=== PATIENT | male | born 1985 | race Caucasian/White ===

== ENCOUNTER 2023-06-16 14:01 | Emergency (ER) | payer MEDICARE, MEDICAID, SELFPAY ==
[2023-06-16 14:50] VITALS: BP 138/87; PULSE 97; RESP 18; TEMP 36.9; O2SAT 99; BMI 28.6
--- NOTE | 2023-06-16 14:52 | ED_ITS ---
HPI - General Adult General Chief complaint: Skin/Abscess/Foreign Body Stated complaint: Rash Time Seen by Provider: 06/16/23 16:19 Source: patient Mode of arrival: ambulatory Limitations: no limitations History of Present Illness HPI narrative: Patient is a 37-year-old male presenting emergency department with painful rash to scrotum for the past 5 days. He denies any dysuria or other urinary symptoms. Denies any penile discharge. Denies any drainage or discharge from the rash. Denies recent fevers. Denies any recent sexual intercourse or new sexual partners. Denies any testicular pain, reports pain is superficial to scrotum. Has applied OTC antibacterial ointment without relief. complaint: scrotal rash Onset (ago): day(s) Location: genitals Radiation: non-radiation Severity: moderate Quality: burning Pain Consistency: constant Relieving factors: none Exacerbating factors: none Associated symptoms: denies other symptoms Treatments prior to arrival: other (antibacterial ointment) Related Data Previous Rx's Medication Instructions Recorded ketoconazole 2 % topical cream 1 appl topical DAILY #15 grams 06/16/23 Allergies Allergy/AdvReac Type Severity Reaction Status Date / Time No Known Allergies Allergy Verified 06/16/23 14:50 Review of Systems Review of Systems: As per HPI. Yes all other systems are reviewed and are negative Constitutional: Constitutional: Reports as per HPI [facility] Social History Social History Advance Directives: No Advance Directives Information Provided: Yes Physical Exam ED Vital Signs: Vital Signs - 24 hr 06/16/23 14:50 06/16/23 18:06 Temperature 98.4 F 98 F Pulse Rate 97 88 Respiratory Rate 18 18 Blood Pressure 138/87 145/97 H Pulse Oximetry 99 98 Oxygen Delivery Method Room Air Room Air BMI result Body Mass Index 28.6 Vital signs have been reviewed and appear to be correct. Blood pressure normal. Heart rate normal. Respiratory rate normal. Temperature normal. Oxygen saturation normal. Const General: cooperative, healthy appearing and no acute distress Orientation/consciousness: oriented to person, oriented to place, oriented to time and patient oriented x3 Limitations: no limitations HENMT Head: Yes normocephalic and Yes atraumatic Ears: external ears normal General nose exam: Normal external nose present Face and sinus: Yes face symmetric Mouth: oropharynx normal and moist mucous membranes Throat: Yes uvula midline Eyes Pupils: Equal, round and reactive pupils present Neck Neck: Yes normal visual inspection and Yes supple Resp Effort & Inspection: normal respiratory effort and able to speak in complete sentences Auscultation: clear to auscultation bilaterally Cardio Rate: regular rate Rhythm: regular rhythm Heart sounds: S1 normal heart sound present and S2 normal heart sound present GI Palpation (GI): Soft to palpation and nontender Auscultation: normoactive bowel sounds Other: Exam chaperoned by LITZY Silver General: Yes no CVA tenderness Penis: normal penis Meatus: meatus normal Scrotum: erythematous diffuse and testes descended bilaterally Testes: Testes normal and no testicular tenderness Back/Spine/Pelvis Back: no CVA tenderness Skin General skin exam: elasticity normal and turgor normal Neuro General: oriented to person, oriented to place, oriented to time, patient oriented x3, moves all extremities, no focal motor deficits and CN's II-XI intact bilaterally Cranial nerves: Yes Equal, round and reactive pupils present Cognition (Neuro): normal cognition Extrem General: Yes full ROM, Yes no pedal edema and Yes no calf tenderness Psych Mental Status: mental status grossly normal Affect: normal affect Thought process: Normal thought process present Course Course Course Narrative: RME: 37 yold male presents to the ED for genital rash for 5 days. patient denies any open sores or penile lesions. Medical Decision Making Medical Decision Making [facility] Narrative: Patient is a 37-year-old male presenting emergency department with painful rash to scrotum for the past 5 days. On exam patient is awake, A+Ox3, VS WNL, afebrile, normal neurological exam without focal deficits, diffuse erythematous excoriated rash to scrotum, no rash to penis, no testicular tenderness. Given reported symptoms and physical exam findings, initial differential includes tinea cruris, seborrheic dermatitis. Unlikely candidal intertrigo, inverse psoriasis, or erythrasma. No evidence of infection on UA. Will prescribe ketoconazole 2% cream daily, advised patient to keep area open to air as much as possible, and to wash towels and underwear in hot, soapy water. Patient instructed patient to follow-up with primary care provider. Return precautions discussed at bedside. Patient verbalized understanding of and agreement with plan. Differential Diagnosis Differential Diagnoses: The differential diagnosis associated with the presentation includes As per MDM. Lab Data [facility] Lab Attestation statement: I reviewed the patient's lab results. As per MDM. Labs: Lab Results 06/16/23 Range/Units 17:35 Urine Color Yellow Urine Appearance Clear Urine pH 5.5 (5.0-9.0) Ur Specific [place] 1.020 (1.005-1.025) Urine Protein Negative (Neg-Trace) mg/dL Urine Glucose (UA) Negative (Negative) mg/dL Urine Ketones Negative (Negative) mg/dL Urine Blood Negative (Negative) Urine Nitrite Negative (Negative) Ur Leukocyte Esterase Negative (Negative) External Record Review External record reviewed: Inpatient record, Office record and Outpatient record Prescription Management I considered prescription management with: Other Discharge Plan Discharge Clinical Impression: Tinea cruris Patient Disposition: Home, Self-Care Instructions: Jock Itch (ED) Additional Instructions: You were evaluated in the emergency department for complaint of rash. Your exam is consistent with tinea cruris, also known as jock itch. You are being prescribed a daily cream to apply to the affected area. You should also leave the area open to air as much as possible. You should wash your underwear, sheets, and towels in hot soapy water. Follow-up with your primary care provider this week. Return to the emergency department for worsening redness, swelling, pain, fevers and 100.4? F or greater, or any other concerning symptoms. Prescriptions: New ketoconazole 2 % cream 1 appl topical DAILY Qty: 15 0RF Rx Instructions: Apply to scrotum daily. Interventions: ED Discharge Assessment Last Done: 06/16/23 18:14 Discharge Date/Time: 06/16/23 18:14
[2023-06-16 17:47] LABS: Appearance Urine Clear; Color Urine Yellow; Glucose Urine UA Negative (Negative); Leukocyte Esterase Urine Negative (Negative); Nitrite Urine Negative (Negative); PH 5.5 (5.0-9.0); Urine Blood Negative (Negative); Urine Ketones Negative (Negative); Urine Protein Negative (Neg-Trace)
[2023-06-16 18:06] VITALS: BP 145/97; PULSE 88; RESP 18; TEMP 36.6; O2SAT 98
== END 2023-06-16 18:14 | disposition home or self-care (01) ==
PROVIDERS: Registered Nurse Emergency; Emergency Provider Internal Medicine
DX: B35.6 Tinea cruris (principal); Z79.899 Other long term (current) drug therapy
CPT/HCPCS: 81003; 99283

== ENCOUNTER 2025-03-13 18:13 | Emergency (ER) | payer OTHER, SELFPAY ==
[2025-03-13 18:30] VITALS: BP 131/91; PULSE 124; RESP 14; TEMP 36.8; O2SAT 96; BMI 33.4
--- NOTE | 2025-03-13 18:30 | ED_ITS ---
HPI - General Adult General Chief complaint: Upper Respiratory Symptoms Stated complaint: throat pain Time Seen by Provider: 03/13/25 20:00 Source: patient Mode of arrival: ambulatory Limitations: no limitations History of Present Illness ED Provider: Marisa Joel PA-C HPI narrative: Patient is a 39 year old assigned male at with no reported medical history presenting to the emergency department today with a sore throat. Patient states that over the last 3 days he has had increased mucous and a sore throat. Patient denies any dizziness, lightheadedness, abdominal pain, nausea, vomiting, fever, chills, blurry vision, double vision, loss of vision, chest pain, difficulty breathing, shortness of breath, back pain, night sweats, pain with urination, increased urinary frequency, increased urinary urgency, blood in his urine or stool, syncope or a near syncopal episode, recent trauma or falls, bowel incontinence, bladder incontinence, or any other complaints at this time. Lyndon lynn denies any recent oral sex. Onset (ago): day(s) (3) Relieving factors: none Exacerbating factors: none Associated symptoms: denies other symptoms Treatments prior to arrival: none Related Data Previous Rx's ?Medication ?Instructions ?Recorded ketoconazole 2 % topical cream 1 appl topical DAILY #15 grams 06/16/23 Allergies Allergy/AdvReac Type Severity Reaction Status Date / Time No Known Allergies Allergy Verified 03/13/25 18:32 Review of Systems Constitutional: Constitutional: Reports no additional constitutional complaints, Denies chills, Denies fever(s) and Denies night sweats Eyes: Eyes: Reports no additional eye complaints, Denies blurry vision, Denies change in vision, Denies diplopia, Denies eye discharge, Denies loss of vision and Denies eye pain ENT: Denies dizziness Comments: Sore throat Cardiovascular: Cardiovascular: Reports no additional cardiovascular comp laints, Denies chest pain, Denies lightheadedness, Denies Loss of Consciousness and Denies dyspnea Respiratory: Respiratory: Reports no additional respiratory complaints and Denies dyspnea Gastrointestinal: Gastrointestinal: Reports no additional gastrointestinal complaints, Denies abdominal pain, Denies melena, Denies hematochezia, Denies change in bowel habits and Denies change in stool character Genitourinary: Genitourinary: Reports no additional male genitourinary complaints, Denies hematuria, Denies oliguria, Denies difficulty urinating, Denies dysuria, Denies urinary frequency, Denies urinary hesitancy, Denies urinary incontinence and Denies urinary urgency Musculoskeletal: Musculoskeletal: Reports no additional musculoskeletal complaints, Denies numbness and Denies tingling Neurologic: Denies dizziness, Denies loss of vision, Denies numbness and Denies tingling Psychiatric: Psychiatric: Reports no additional psychiatric complaints Endocrine: Endocrine: Reports no additional endocrine complaints Hematologic/Lymphatic: Hematologic/Lymphatic: Reports no additional hematologic/lymphatic complaints Allergic/Immunologic: Allergic/Immunologic: Reports no additional allergic/immunologic complaints [facility] Past Medical History Attestation statement: The following information was validated with the patient. Source: old records reviewed and nursing notes reviewed Social History Social History Advance Directives: No Advance Directives Information Provided: No Do you have a plan to hurt others: No Plan Physical Exam ED Vital Signs: Vital Signs - 24 hr 03/13/25 18:30 03/13/25 20:09 Temperature 98.2 F 98.5 F Pulse Rate 124 H 98 Respiratory Rate 14 16 Blood Pressure 131/91 H 147/98 H Pulse Oximetry 96 99 Oxygen Delivery Method Room Air BMI result Body Mass Index 33.4 Const General: cooperative, no acute distress, alert and awake Nutritional Appearance: well nourished Orientation/consciousness: patient oriented x3 HENMT Head: Yes normal to inspection and Yes atraumatic Ears: hearing grossly normal bilaterally and external ears normal General nose exam: Normal external nose present, no nasal discharge noted and no epistaxis Face and sinus: Yes normal facial exam, No abrasion and No laceration Mouth: Normal oral and palatal mucosa present, no drooling and no muffled voice Eyes General: appearance normal, both eyes and all related structures Periorbital: periorbital findings normal Eyelids: Yes eyelids normal Conjunctivae: conjunctivae normal Pupils: Equal, round and reactive pupils present EOM: EOMs intact bilaterally Neck Neck: Yes normal visual inspection, Yes full ROM and Yes no lymphadenopathy Resp Effort & Inspection: normal respiratory effort and able to speak in complete sentences Neuro General: patient oriented x3, moves all extremities and CN's II-XI intact bilaterally Cranial nerves: Yes Equal, round and reactive pupils present Cognition (Neuro): normal cognition Extrem General: Yes normal to inspection, Yes full ROM and Yes capillary refill normal Psych Appearance: grossly normal Mental Status: mental status grossly normal Affect: normal affect Attitude: cooperative Thought process: Normal thought process present Thought content: Normal thought content present Insight: Good insight present (Psych) Course Course Course Narrative: RME performed by Marisa Joel PA-C. Patient is a 39 year old assigned male at presenting to the emergency department with a sore throat. Detailed physical exam and review of systems are deferred to the prosthodontist. Swabs ordered. Patient placed back in the waiting room pending room availability and results. Medical Decision Making Medical Decision Making [facility] Narrative: Patient is a 39 year old assigned male at with no reported medical history presenting to the emergency department today with a sore throat. Patient's physical exam was unremarkable. Patient's strep pharyngitis, COVID-19, infl uenza, and RSV testing was all negative. Patient's clinical presentation is most consistent with viral pharyngitis vs. post nasal drip secondary to seasonal allergies or viral cause. I explained my physical exam findings as well as all test results to the patient. I answered all questions asked by the patient. I stressed the importance of the patient taking his medication as directed (either prescribed or as the over the counter packaging recommends). I stressed the importance of the patient following up with his primary care provider. I stressed the importance of the patient returning to the emergency department immediately if his symptoms were to worsen or if he were to develop any dizziness, shortness of breath, difficulty breathing, chest pain, blurry vision, loss of vision, nausea, vomiting, abdominal pain, fever, chills, back pain, or any other complaints. Patient verbalized agreement and understanding with this treatment plan and discharge. Differential Diagnosis Differential Diagnoses: The differential diagnosis associated with the presentation includes Sore throat Pharyngitis Viral pharyngitis Viral illness Post nasal drip Admission/Observation Consideration of admission/observation: Escalation of care including admission/observation considered Patient would have been admitted to the hospital had his work up had any findings where hospital admission was appropriate and his clinical presentation warranted hospital admission. Lab Data [facility] Lab Attestation statement: I reviewed the patient's lab results. My interpretation of these results are in the [facility] Rationale portion of this note. Labs: Lab Results 03/13/25 Range/Units 19:11 Influenza Type A (PCR) NEGATIVE (Negative) Influenza Type B (PCR) NEGATIVE (Negative) RSV RNA Qual (PCR) NEGATIVE (Negative) SARS-CoV-2 RNA (RT-PCR) NEGATIVE (Negative) S. pyogenes GrpA QUAN Negative (Negative) Discharge Plan Discharge Clinical Impression: Viral pharyngitis Patient Disposition: Home, Self-Care Instructions: Pharyngitis (ED) Additional Instructions: Take an over the counter anti-histamine such as loratadine. Follow up with your primary care provider. Return to the emergency department immediately if your symptoms worsen or if you develop any numbness, tingling, dizziness, shortness of breath, difficulty breathing, chest pain, blurry vision, loss of vision, nausea, vomiting, abdominal pain, fever, chills, back pain, or any other complaints. Please see the information below about our Patient Portal. If you are not yet enrolled in the [facility] Patient Portal, you will receive an enrollment email invitation following your visit to any [facility] setting. You may also self-enroll in the Patient Portal by visiting our website: [email or web address] The following information is required to access the Patient Portal: - Your [facility] Medical Record Number - Your personal home email address (must match what is in your electronic medical record, Registration staff can assist with this) - Name - Date of Capabilities of the Patient Portal: - Message some providers - View upcoming appointments - Access your health summary, medical history, and visit history - View current conditions and allergies - View procedure and lab results - View your medications, including guidelines, side effects, and precautions - Complete pre-appointment questionnaires requested by your provider - Ready summary reports of your office visits and procedures To access the Patient Portal Mobile Navin, follow these directions: - Search Medius in the Navin Store or [employer] Store - Download the Navin - Search for [facility] - Enter your login/password Prescriptions: No Action ketoconazole 2 % cream 1 appl topical DAILY Qty: 15 0RF Rx Instructions: Apply to scrotum daily. Referrals: [facility] Family Medicine [Provider Group] (Call to establish and follow up with a primary care provider. If you already have a primary care provider, please follow up with them.) [facility] Primary Care, Angie [Provider Group] (Call to establish and follow up with a primary care provider. If you already have a primary care provider, please follow up with them.) [facility] Primary Care, Evaristo [Provider Group] (Call to establish and follow up with a primary care provider. If you already have a primary care provider, please follow up with them.) [facility] Primary Care, ANA [Provider Group] (Call to establish and follow up with a primary care provider. If you already have a primary care provider, please fo llow up with them.) [facility] Primary Care, Hal Casiano [Provider Group] (Call to establish and follow up with a primary care provider. If you already have a primary care provider, please follow up with them.) Interventions: ED Discharge Assessment Last Done: 03/13/25 20:09 Discharge Date/Time: 03/13/25 20:15 Print Language: Syriac
[2025-03-13 19:54] LABS: Influenza A PCR NEGATIVE (Negative); Influenza B PCR NEGATIVE (Negative); Resp Syncy Virus RNA Qual PCR NEGATIVE (Negative); SARS COV2 PCR INHOUSE NEGATIVE (Negative)
[2025-03-13 19:58] LABS: IDNOW Serial# 6674DD1D; Strep A Nucleic Acid Negative (Negative)
[2025-03-13 20:09] VITALS: BP 147/98; PULSE 98; RESP 16; TEMP 36.9; O2SAT 99
== END 2025-03-13 20:15 | disposition home or self-care (01) ==
PROVIDERS: Physician Assistant Medical; Emergency Provider Emergency Medicine Emergency Medical Services
DX: J02.8 Acute pharyngitis due to other specified organisms (principal); R07.0 Pain in throat; Z03.818 Encounter for observation for suspected exposure to other biological agents ruled out
CPT/HCPCS: 0241U; 87651; 99282; 99283